=== PATIENT | male | born 1950 | race Caucasian/White ===

== ENCOUNTER 2017-08-28 20:25 | Emergency (ER) | payer BC, MEDICARE ==
[2017-08-28 21:51] LABS: #Eosinphils 0.1 thou/uL (0.0-0.7); #Lymphocytes 2.3 thou/uL (1.20-3.40); #Monocytes 0.5 thou/uL (0.11-0.59); #Neutrophils 2.5 thou/uL (1.40-6.50); %Basophils 0.6 % (0.0-1.0); %Eosinophils 1.1 % (0.0-10.0); %Lymphocytes 42.7 % (21.0-51.0); Hematocrit 44.9 % (42.0-52.0); Red Blood Cell (RBC) Count 4.75 mill/uL (4.70-6.10); White Blood Cell (WBC) Count 5.3 thou/uL (4.8-10.8)
[2017-08-28 22:04] LABS: Bilirubin Negative (Negative); Blood, Urine Negative (Negative); Glucose, Urine (Dipstick) Negative (Negative); Ketone, Urine Negative (Negative); Nitrite Negative (Negative); Protein, Urine (Dipstick) Negative (Neg-Trace); Urobilinogen 0.2 mg/dL (0.2-1.0)
--- NOTE | 2017-08-28 22:07 | CT ---
HEAD CT WITHOUT CONTRAST 08/28/17 COMPARISON: None. HISTORY: Vertigo. TECHNIQUE: Serial axial CT imaging at 5 mm intervals from vertex through skull base without contrast. FINDINGS: The imaged paranasal sinuses/mastoid air cells are well aerated. There is no displaced calvaria n fra cture. No intracranial hemorrhage, midline shift, mass effect or ventricular enlargement. IMPRESSION: No acute findings. POS: [facility]
[2017-08-28] MEDS ORDERED: Meclizine HCl 25 MG TAB ONE (22:10)
[2017-08-28] MEDS ORDERED: Diazepam 5 MG TAB ONE (22:10)
[2017-08-28 22:12] LABS: Amphetamine Not Detected (NotDetected); Methadone Not Detected (NotDetected); Methamphetamine Not Detected (NotDetected)
[2017-08-28 22:14] LABS: Troponin I Less than 0.010 ng/mL (< 0.028)
[2017-08-28 22:15] LABS: ALT (SGPT) 40 U/L (8-55); AST (SGOT) 45 U/L (5-34); Alkaline Phosphatase 48 U/L (40-150); Anion Gap 15 mmol/L (10-20); BUN (Urea Nitrogen) 18 mg/dL (8.4-25.7); Calc. Creatinine Clearance 0 mL/min (70-130); Calcium 9.9 mg/dL (7.8-10.44); Carbon Dioxide 22 mmol/L (23-31); Chloride 103 mmol/L (98-107); Estimated GFR-MDRD 53; Protein, Total 7.2 g/dL (5.8-8.1)
--- NOTE | 2017-09-01 12:59 | EKG ---
Test Reason : Blood Pressure : / mmHG Vent. Rate : 066 BPM Atrial Rate : 066 BPM P-R Int : 164 ms QRS Dur : 086 ms QT Int : 414 ms P-R-T Axes : 022 003 033 degrees QTc Int : 434 ms Normal sinus rhythm Possible Left atrial enlargement Inferior infarct , age undetermined Anterior infarct , age undetermined Abnormal ECG Confirmed by NEELAM CHANG ([id number]), web content editor CANDICE OLIVA ([id number]) on 09/01/2017 12:58:39 PM Referred By: Confirmed By:NEELAM CHANG
== END 2017-08-29 01:50 | disposition home or self-care (01) ==
LOC: ERS 20:25
DX: R42 Dizziness and giddiness (principal); I10 Essential (primary) hypertension; E11.9 Type 2 diabetes mellitus without complications; I25.10 Atherosclerotic heart disease of native coronary artery without angina pectoris; Z79.84 Long term (current) use of oral hypoglycemic drugs; Z79.82 Long term (current) use of aspirin; Z79.899 Other long term (current) drug therapy
CPT/HCPCS: 70450; 80053; 80306; 81003; 82553; 84484; 85025; 93005

== ENCOUNTER 2018-11-19 12:36 | Outpatient (CLI) | payer MEDICARE, BC ==
--- NOTE | 2018-11-19 15:47 | MRI ---
MRI OF RIGHT SHOULDER PERFORMED WITHOUT CONTRAST ENHANCEMENT: Date: 11/19/18 HISTORY: Fell 3 months ago with right shoulder pain. FINDINGS: There are some moderate AC joint hypertrophic changes. No os acromiale. There is a low grade far anterior supraspinatus tendon tear. In addition, there is a more prominent i nterstitial tear of the more posterior supraspinatus tendon extending into the infraspinatus. This oc curs at the footprint and involves greater than 50% of the thickness of the tear. It may be a conceal tear as I do not see a definite connection to the articular bursal surface, although extends very cl ose to both of these surfaces. There is a lower grade undersurface tear of the infraspinatus tendon. In addition, there is abnormal increased signal change within the subscapularis tendon. This is assoc iated with a partial undersurface tear These changes probably represent a combination of tendinosis, but also may indicate a more acute to subacute injury. The changes actually are more prominent with t he inferior fibers of the subscapularis tendon. The biceps tendon does remain in normal position with in the bicipital groove. There is an extensive labral tear, which is a SLAP-type tear with anterior extension and extending in to the anterior superior and anterior inferior labrum. These changes are associated with a thickened inferior glenohumeral ligament and involving both the anterior band as well as posterior band and mid portion of the inferior glenohumeral ligament suggesting a stretching type injury. Anterior inferior labrum appears most stretched and irregular. There appears to be some stripping to the anterior band fibers. The posterior labrum appears intact. No significant muscle atrophy of the rotator cuff. IMPRESSION: 1. Lower grade undersurface tears of the anteriormost attachment of the supraspinatus tendon and low er grade undersurface tear of the more anterior fibers of the infraspinatus. In addition, there is a large interstitial tear at the level of the conjoined tendon. This is a nonretracted tear involving g reater than 50% of the thickness of the tendon, although it may be a concealed tear. It is difficult to show a definite articular or bursal sided attachment. I would favor that there is more likely to b e a small bursal sided extension of this tear. There is no significant rotator cuff atrophy. 2. Enlarged, somewhat edematous appearing subscapularis tendon suggesting some type of stretching ty pe injury. The biceps tendon remains in a normal position within the bicipital groove. 3. Extensive SLAP-type tear of the labrum. This begins in the superior labrum extending from the pos terior superior labrum to the anterior superior and anterior inferior labrum. 4. Edematous and thickened appearance to the inferior glenohumeral ligament. This includes the anter ior band mid substance and posterior bands suggesting a stretching type injury. There appears to be s ome stripping of some of the capsular attachments of the anterior band associated with this. POS: [facility]
== END 2018-11-19 12:37 | disposition home or self-care (01) ==
LOC: BICMRI 12:36 → TBSIIMAG 12:37
PROVIDERS: ATTEND Orthopaedic Surgery
DX: M75.101 Unspecified rotator cuff tear or rupture of right shoulder, not specified as traumatic (principal)

== ENCOUNTER 2018-12-27 13:57 | Outpatient (CLI) | payer MEDICARE, BC ==
[2018-12-27 15:45] LABS: #Lymphocytes 1.8 thou/uL (1.20-3.40); #Monocytes 0.3 thou/uL (0.11-0.59); #Neutrophils 2.3 thou/uL (1.40-6.50); %Basophils 0.4 % (0.0-1.0); %Eosinophils 0.6 % (0.0-10.0); %Lymphocytes 41.3 % (21.0-51.0); %Monocytes 7.1 % (0.0-10.0); %Neutrophils 50.7 % (42.0-75.0); Hemoglobin 16.1 g/dL (14.0-18.0); Mean Corpuscular HGB CONC 35.7 g/dL (32.0-36.0); Mean Corpuscular Hemoglobin 34.3 pg (27.0-31.0); Mean Corpuscular Volume 95.9 fL (78.0-98.0); Mean Platelet Volume 9.1 fL (7.4-10.4); Platelet Count 150 thou/uL (130-400); RBC Distribution Width 11.1 % (11.5-14.5); Red Blood Cell (RBC) Count 4.69 mill/uL (4.70-6.10); White Blood Cell (WBC) Count 4.5 thou/uL (4.8-10.8)
[2018-12-27 16:04] LABS: Anion Gap 13 mmol/L (10-20); BUN (Urea Nitrogen) 19 mg/dL (8.4-25.7); Calc. Creatinine Clearance 0 mL/min (70-130); Calcium 9.9 mg/dL (7.8-10.44); Carbon Dioxide 23 mmol/L (23-31); Chloride 102 mmol/L (98-107); Estimated GFR-MDRD 54; Glucose 201 mg/dL (80-115); Potassium 4.4 mmol/L (3.5-5.1); Sodium 134 mmol/L (136-145)
--- NOTE | 2018-12-28 22:29 | EKG ---
Test Reason : Blood Pressure : / mmHG Vent. Rate : 076 BPM Atrial Rate : 076 BPM P-R Int : 166 ms QRS Dur : 086 ms QT Int : 398 ms P-R-T Axes : 055 051 062 degrees QTc Int : 447 ms Normal sinus rhythm Low voltage QRS Cannot rule out Anterior infarct (cited on or before 28-AUG-2017) Abnormal ECG When compared with ECG of 28-AUG-2017 20:41, Criteria for Inferior infarct are no longer Present Confirmed by Chelsie NICHOLSON ([id number]) on 12/28/2018 10:29:12 PM Referred By: DELMA Confirmed By:Chelsie NICHOLSON
== END 2018-12-27 13:58 | disposition home or self-care (01) ==
LOC: LABBT 13:57
PROVIDERS: ATTEND Orthopaedic Surgery
DX: Z01.818 Encounter for other preprocedural examination (principal); M75.101 Unspecified rotator cuff tear or rupture of right shoulder, not specified as traumatic
CPT/HCPCS: 80048; 85025; 93005; 93010

== ENCOUNTER 2018-12-31 08:24 | Day surgery (SDC) | payer MEDICARE, BC ==
[2018-12-27 14:29] VITALS: BMI 28.1
[2018-12-31] MEDS ORDERED: Fentanyl 100 MCG/2 ML VIAL ONE (09:04)
[2018-12-31] MEDS ORDERED: Midazolam HCl 2 mg/2 ml Vial ONE (09:04)
[2018-12-31] MEDS ORDERED: traMADol HCl 50 MG TAB PO PRN ×2 (10:04)
[2018-12-31] MEDS ORDERED: Ropivacaine 0.2% 550 ML 550 ML NERVE BLCK SCH (10:04)
[2018-12-31] MEDS ORDERED: Promethazine HCl 25 MG/ML VIAL IM PRN (10:04)
[2018-12-31] MEDS ORDERED: Ondansetron PF 4 MG/2 ML Vial IVP PRN (10:04)
[2018-12-31] MEDS ORDERED: HYDROcodone/Acetaminophen 5/325 mg Tablet PO PRN ×2 (10:04)
[2018-12-31] MEDS ORDERED: Zolpidem Tartrate 5 MG TAB PO PRN (10:04)
[2018-12-31] MEDS ORDERED: Fentanyl 100 MCG/2 ML VIAL IV PRN (10:04)
[2018-12-31] MEDS ORDERED: Promethazine HCl 25 MG/ML VIAL ONE (13:57)
[2018-12-31] MEDS ORDERED: Ropivacaine 0.5% HCl/PF (150 MG/30 ML VIAL) ONE (16:30)
[2018-12-31] MEDS ORDERED: Ropivacaine 0.2% HCl/PF (40 MG/20 ML VIAL) ONE (16:30)
[2018-12-31] MEDS ORDERED: Lidocaine 1% PF 5 ML VIAL ONE (16:42)
[2018-12-31] MEDS ORDERED: Glycopyrrolate 0.2 MG/ML 5 ML SYRINGE ONE (16:42)
[2018-12-31] MEDS ORDERED: Ketorolac Tromethamine 30 MG/ML VIAL ONE (16:42)
[2018-12-31] MEDS ORDERED: PROPOFOL 200 MG/20 ML VIAL ONE (16:42)
[2018-12-31] MEDS ORDERED: Rocuronium Bromide 10 MG/ML (10ML VIAL) ONE (16:42)
[2018-12-31] MEDS ORDERED: Ondansetron PF 4 MG/2 ML Vial ONE (16:42)
[2018-12-31] MEDS ORDERED: Dexamethasone 20 MG/5 ML VIAL ONE (16:42)
[2018-12-31] MEDS ORDERED: PHENYLEPHRINE-NS 100 MCG/ML 10 ML SYRINGE ONE (16:42)
--- NOTE | 2018-12-31 17:32 | OP ---
DATE OF PROCEDURE: 12/31/2018 PREOPERATIVE DIAGNOSES: 1. Right rotator cuff tear. 2. Labrum tear. POSTOPERATIVE DIAGNOSES: 1. Right rotator cuff tear. 2. Labrum tear. 3. Loose body. PROCEDURES PERFORMED: 1. Right arthroscopic rotator cuff repair. 2. Arthroscopic decompression. 3. Arthroscopic removal of loose body. ANESTHESIA: General. ESTIMATED BLOOD LOSS: Minimal. SPECIMENS: None. DRAINS: None. COMPLICATIONS: None. DESCRIPTION OF PROCEDURE: The patient was taken to the operating room. General anesthesia was induced. The patient was placed in left lateral decubitus position. Right arm was placed in 15 pounds of traction, prepped and draped in the usual sterile fashion. Scope was placed in the glenohumeral joint, and a large loose body about 1 x 0.8 cm, this was removed with an anterior portal. I debrided his labrum. I probed his labrum. He had a small labral defect anteriorly and inferiorly, but this did not appear to be full blown. There did not appear to be a full-blown Bankart lesion. I did not put any sutures in this lesion. He had a full-thickness rotator cuff tear, which was fairly small, and he had a stable biceps tendon without any significant tendinitis. Scope was placed in the subacromial bursa. Bursectomy was performed. CA ligament was taken down. Hemostasis was obtained. Anterior inferior acromioplasty was performed with a bur. I freshened the greater tuberosity with a shaver and freshened the margins of the rotator cuff tear with a shaver. A single corkscrew suture was passed through the greater tuberosity, past the rotator cuff, and tied down to good watertight repair and then reinforced with a double row technique using a self-punching SwiveLock. Shoulder was irrigated. Portals were closed with nylon suture. Sterile dressing was applied. The patient was placed in sling. There were no complications. Job ID: [id number]
== END 2018-12-31 15:55 | disposition home or self-care (01) ==
LOC: SDC 08:24
PROVIDERS: ATTEND Orthopaedic Surgery
PROC: 0LM14ZZ Reattachment of Right Shoulder Tendon, Percutaneous Endoscopic Approach (ICD-10-PCS; principal; 2018-12-31)
DX: M75.121 Complete rotator cuff tear or rupture of right shoulder, not specified as traumatic (principal); M24.011 Loose body in right shoulder; S43.401A Unspecified sprain of right shoulder joint, initial encounter
CPT/HCPCS: 29827; 82962; 97139; A4306; C1713; 36416; J0690; J2250; J2550; J2795; J3010

== ENCOUNTER 2019-01-01 04:09 | Emergency (ER) | payer MEDICARE, BC ==
[2019-01-01 04:48] LABS: Bilirubin Negative (Negative); Blood, Urine Negative (Negative); Clarity CLOUDY (Clear); Glucose, Urine (Dipstick) 500 mg/dL (Negative); Leukocyte Negative (Negative); Nitrite Negative (Negative); Protein, Urine (Dipstick) Negative (Neg-Trace); Specific Gravity, Urine 1.014 (1.002-1.036); Urobilinogen 0.2 mg/dL (0.2-1.0)
== END 2019-01-01 05:41 | disposition home or self-care (01) ==
LOC: ERS 04:09
DX: R33.9 Retention of urine, unspecified (principal); I10 Essential (primary) hypertension; E11.9 Type 2 diabetes mellitus without complications; I25.10 Atherosclerotic heart disease of native coronary artery without angina pectoris
CPT/HCPCS: 51702; 81003; 87086

== ENCOUNTER 2024-06-10 14:33 | Emergency (ER) | payer MEDICARE ==
[2024-06-10 15:37] LABS: #Basophils Less than 0.03 10x3/uL (0.0-0.2); #Eosinphils Less than 0.03 10x3/uL (0.0-0.7); %Basophils 0.3 % (0.0-1.0); %Eosinophils 0.2 % (0.0-10.0); %Lymphocytes 18.3 % (21.0-51.0); %Monocytes 7.5 % (0.0-10.0); %Neutrophils 73.2 % (42.0-75.0); Hematocrit 39.4 % (42.0-52.0); Hemoglobin 14.2 g/dL (14.0-18.0); Mean Corpuscular Hemoglobin 33.6 pg (27.0-31.0); Mean Corpuscular Volume 93.1 fL (78.0-98.0); Mean Platelet Volume 11.5 fL (7.4-10.4); Platelet Count 130 10x3/uL (130-400); RBC Distribution Width 11.2 % (11.5-14.5); Red Blood Cell (RBC) Count 4.23 mill/uL (4.70-6.10)
[2024-06-10 15:49] LABS: ALT (SGPT) 26 U/L (8-55); AST (SGOT) 30 U/L (5-34); Albumin 4.1 g/dL (3.4-4.8); Alkaline Phosphatase 42 U/L (40-110); Anion Gap 15 mmol/L (10-20); BUN (Urea Nitrogen) 31 mg/dL (8.4-25.7); Bilirubin, Total 1.1 mg/dL (0.2-1.2); Calc. Creatinine Clearance 0 mL/min (70-130); Calcium 10.3 mg/dL (7.8-10.44); Carbon Dioxide 18 mmol/L (23-31); Chloride 111 mmol/L (98-107); Estimated GFR 28; Globulin 2.7 g/dL (2.4-3.5); Glucose 244 mg/dL (83-110); Potassium 4.9 mmol/L (3.5-5.1); Protein, Total 6.8 g/dL (5.8-8.1); Sodium 139 mmol/L (136-145)
[2024-06-10 15:54] LABS: Troponin I 0.025 ng/mL (< 0.028)
[2024-06-10] MEDS ORDERED: Bacitracin 1 PK ONE (16:50)
[2024-06-10] MEDS ORDERED: Boostrix 0.5 ML (Tdap) VIAL (>/=7 yrs of age) ONE (16:50)
[2024-06-10 19:01] LABS: Anion Gap 12 mmol/L (10-20); BUN (Urea Nitrogen) 29 mg/dL (8.4-25.7); Calc. Creatinine Clearance 0 mL/min (70-130); Carbon Dioxide 20 mmol/L (23-31); Chloride 112 mmol/L (98-107); Estimated GFR 35; Glucose 195 mg/dL (83-110); Potassium 4.5 mmol/L (3.5-5.1); Sodium 139 mmol/L (136-145)
== END 2024-06-10 19:22 | disposition home or self-care (01) ==
LOC: ERS 14:33
DX: S51.812A Laceration without foreign body of left forearm, initial encounter (principal); E86.0 Dehydration; E86.1 Hypovolemia; I10 Essential (primary) hypertension; E11.9 Type 2 diabetes mellitus without complications; I25.10 Atherosclerotic heart disease of native coronary artery without angina pectoris; X58.XXXA Exposure to other specified factors, initial encounter; Y93.53 Activity, golf; Y92.39 Other specified sports and athletic area as the place of occurrence of the external cause; Z23 Encounter for immunization
CPT/HCPCS: 36415; 36416; 80053; 84484; 85025; 90471; 90715; 93005